=== PATIENT | male | born 1935 | race Caucasian/White ===

== ENCOUNTER 2019-10-09 06:01 | Inpatient (IN) | payer MEDICARE ==
[2019-10-09] MEDS ORDERED: CEFAZOLIN 2 GM in Premix Bag 1 BAG IVPB SCH (06:30)
[2019-10-09] MEDS ORDERED: Vancomycin 1.5 GRAM/300 ML BAG 1.5 GM in Premix Bag 1 BAG IVPB SCH (06:30)
[2019-10-09] MEDS ORDERED: Albumin 5% 0 ML ONE (06:39)
[2019-10-09] MEDS ORDERED: Midazolam HCl 5 mg/5 ml Vial ONE (06:48)
[2019-10-09] MEDS ORDERED: Vecuronium 10 MG VIAL ONE ×2 (06:48→10:15)
[2019-10-09] MEDS ORDERED: Fentanyl 250 MCG/5 ML VIAL ONE (06:48)
[2019-10-09] MEDS ORDERED: Dexmedetomidine 200 MCG/2 ML VIAL ONE (06:48)
[2019-10-09] MEDS ORDERED: Heparin 10,000 UNITS/1 ML VIAL 30,000 UNITS in Sodium Chloride 0.9% 1,000 ML FS SCH (07:00)
[2019-10-09] MEDS ORDERED: Midazolam HCl 2 mg/2 ml Vial ONE (07:13)
[2019-10-09] MEDS ORDERED: Dexamethasone 4 mg/ml Vial ONE (07:30)
[2019-10-09] MEDS ORDERED: EPINEPHrine 1 MG/ML AMP ONE (08:07)
[2019-10-09] MEDS ORDERED: EPINEPHrine 1 MG/10 ML Abboject SYRINGE ONE (08:07)
[2019-10-09] MEDS ORDERED: Albumin 5% 500 ML ONE (09:00)
[2019-10-09] MEDS ORDERED: PHENYLEPHRINE-NS 100 MCG/ML 10 ML SYRINGE ONE (09:17)
[2019-10-09] MEDS ORDERED: Bupivacaine/Epinephrine 0.5% 10 ML VIAL ONE (09:53)
[2019-10-09] MEDS ORDERED: Insulin Regular 300 UNITS/3 ML VIAL ONE (09:53)
[2019-10-09] MEDS ORDERED: Nitroglycerin 50 MG/250 ML BOT ONE (10:15)
[2019-10-09] MEDS ORDERED: Sodium Bicarb 50 MEQ/50 ML Abboject 8.4% SYRINGE ONE (10:15)
[2019-10-09] MEDS ORDERED: PROPOFOL 200 MG/20 ML VIAL ONE (10:15)
[2019-10-09] MEDS ORDERED: Papaverine 60 MG/2 ML VIAL ONE (10:15)
[2019-10-09] MEDS ORDERED: Thrombin 5000 UNITS/5 ML VIAL ONE (10:15)
[2019-10-09] MEDS ORDERED: Cardioplegic Soln 1,000 ML BAG ONE (10:15)
[2019-10-09] MEDS ORDERED: Norepinephrine 4 MG/4 ML VIAL ONE (10:15)
[2019-10-09] MEDS ORDERED: Potassium Chloride 60 MEQ/30 ML VIAL ONE (10:15)
[2019-10-09] MEDS ORDERED: Heparin 30,000 units/30 ml VIAL ONE (10:15)
[2019-10-09] MEDS ORDERED: Heparin 5,000 UNITS/ML VIAL ONE (10:15)
[2019-10-09] MEDS ORDERED: Aminocaproic Acid 5 GM/20 ML VIAL ONE (10:15)
[2019-10-09] MEDS ORDERED: Magnesium Sulfate 1 GM/2 ML VIAL ONE (10:15)
[2019-10-09] MEDS ORDERED: Ondansetron PF 4 MG/2 ML Vial ONE (10:15)
[2019-10-09] MEDS ORDERED: Calcium Chloride 1 GM/10 ML Abboject SYRINGE ONE (10:15)
[2019-10-09] MEDS ORDERED: Lidocaine 2% PF 100 mg/5 ml Syringe ONE (10:15)
[2019-10-09 12:24] LABS: Actual Bicarbonate (HCO3a) 20.9 mEq/L (22-28); Base Excess (BEa) -4.3 mEq/L (-2.0 to +3.0); CO2 Tension 38.7 mmHg (35.0-45.0); Calcium, Ionized 1.06 mmol/L (1.12-1.30); Carboxyhemoglobin (COHb) 0.2 gm% (0.0-3.0); Hemoglobin (Hb) 11.9 g/dL (14.0-18.0); O2 Tension (PaO2) 111.3 mmHg (> 60.0); pH, Arterial 7.35 (7.35-7.45)
[2019-10-09 12:25] LABS: Puncture Site ALINE
[2019-10-09 12:26] LABS: ALV-art Gradient 268.125 (0-20)
[2019-10-09] MEDS ORDERED: Midazolam HCl 2 mg/2 ml Vial SLOW IVP SCH (12:30)
[2019-10-09] MEDS ORDERED: Potassium Chloride 20 MEQ/100 ML PREMIX BAG IVPB PRN (12:34)
[2019-10-09] MEDS ORDERED: Phenylephrine 10 MG/NS 250 ML 250 ML IVPB PRN (12:34)
[2019-10-09] MEDS ORDERED: Bisacodyl 10 MG SUPP PR PRN (12:34)
[2019-10-09] MEDS ORDERED: Magnesium 2 GM/50 ML 2 GM in Premix Bag 1 BAG IVPB SCH (12:34)
[2019-10-09] MEDS ORDERED: Ondansetron PF 4 MG/2 ML Vial IVP PRN (12:34)
[2019-10-09] MEDS ORDERED: Post-Op Insulin Drip Protocol IVPB ONE (12:34)
[2019-10-09] MEDS ORDERED: Guaifenesin DM 100-10/5 ML UDCUP PO PRN (12:34)
[2019-10-09] MEDS ORDERED: Mag-Al 1200 mg/1200 mg/30 ML UDCUP PO PRN (12:34)
[2019-10-09] MEDS ORDERED: Morphine 2 MG/ML SYRINGE SLOW IVP PRN (12:34)
[2019-10-09] MEDS ORDERED: Fentanyl 100 MCG/2 ML VIAL SLOW IVP PRN (12:34)
[2019-10-09] MEDS ORDERED: D5 1/2 NS w/20 mEq KCL 1,000 ML IV SCH (12:34)
[2019-10-09] MEDS ORDERED: Hetastarch 6% 500 ML 500 ML IVPB PRN (12:34)
[2019-10-09] MEDS ORDERED: hydrALAZINE 20 MG/ML VIAL SLOW IVP PRN (12:34)
[2019-10-09] MEDS ORDERED: Bisacodyl 5 MG TAB PO PRN (12:34)
[2019-10-09] MEDS ORDERED: Norepinephrine 8 MG/0.9% NS 250 ML IVPB PRN (12:34)
[2019-10-09] MEDS ORDERED: Nitroglycerin 50 MG/250 ML BOT 250 ML IVPB PRN (12:34)
[2019-10-09] MEDS ORDERED: Morphine 4 MG/ML VIAL ONE (12:35)
[2019-10-09] MEDS ORDERED: Propofol 1,000 MG/100 ML VIAL IV ONE (12:37)
[2019-10-09 12:43] LABS: Hemoglobin 11.4 g/dL (14.0-18.0); Mean Corpuscular HGB CONC 32.8 g/dL (32.0-36.0); Mean Corpuscular Hemoglobin 31.1 pg (27.0-31.0); Mean Corpuscular Volume 94.9 fL (78.0-98.0); Mean Platelet Volume 6.9 fL (7.4-10.4); Platelet Count 151 thou/uL (130-400); RBC Distribution Width 11.6 % (11.5-14.5); Red Blood Cell (RBC) Count 3.68 mill/uL (4.70-6.10); White Blood Cell (WBC) Count 17.1 thou/uL (4.8-10.8)
[2019-10-09 12:44] LABS: INR-International Normal Ratio 1.7; PTT 66.3 SEC (22.9-36.1); Prothrombin Time 20.2 SEC (12.0-14.7)
[2019-10-09] MEDS ORDERED: Dextrose 50% Abboject 50 ML SYRINGE SLOW IVP PRN (12:47)
[2019-10-09] MEDS ORDERED: HUMULIN R 100 UNITS in Sodium Chloride 0.9% 100 ML IVPB SCH (12:47)
[2019-10-09] MEDS ORDERED: Dextrose 5% in Water 1,000 ML IV PRN (12:47)
--- NOTE | 2019-10-09 12:58 | RAD ---
XR Chest 1 View Portable History: Open-heart surgery Comparison: Radiograph prior day Findings: Patient is intubated with endotracheal tube tip at the level of clavicles. Aortic valve rep lacement. Heart size is enlarged. Mild widening of the mediastinum. Mediastinal drains are present. No pneumothorax. Impression: Expected postoperative findings without complication.
[2019-10-09 13:03] LABS: Anion Gap 14 mmol/L (10-20); BUN (Urea Nitrogen) 13 mg/dL (8.4-25.7); Calc. Creatinine Clearance 64 mL/min (70-130); Calcium 6.9 mg/dL (7.8-10.44); Carbon Dioxide 17 mmol/L (23-31); Chloride 114 mmol/L (98-107); Estimated GFR-MDRD 73; Glucose 60 mg/dL (83-110); Potassium 3.9 mmol/L (3.5-5.1); Sodium 141 mmol/L (136-145)
[2019-10-09 13:27] LABS: Band 32 % (5-11); Eosinophils 1 % (0-10); Lymphocytes 7 % (21-51); MDiff Complete? YES; Metamyelocyte 2 % (0-0); Monocytes 1 % (0-10); Neutrophil 56 % (42-75); Platelet Morphology Comment Appears Adequate
--- NOTE | 2019-10-09 13:53 | OP ---
DATE OF PROCEDURE: 10/09/2019 PREOPERATIVE DIAGNOSES: Aortic stenosis/coronary artery disease. POSTOPERATIVE DIAGNOSES: Aortic stenosis/coronary artery disease. PROCEDURES PERFORMED: 1. Aortic valve replacement with #23 Inspiris bioprosthetic valve. 2. Coronary artery bypass grafting x2;. a. Left internal mammary to 1.25 mm left anterior descending. b. Right radial artery to 2.0 mm obtuse marginal. 3. Right radial artery harvest. ANESTHESIA: General endotracheal. ANESTHESIA: Maury Russ MD. PUMP TIME: 99 minutes. CROSS-CLAMP TIME: 83 minutes. LOW CORE TEMPERATURE: 34 degrees Celsius. DRUM TENDER: Zaid Sarmiento. DRAINS: 24-Belizean chest tubes x2. DRIPS: Levophed at 8 mcg. TRANSFUSIONS: None. DESCRIPTION OF PROCEDURE: After consent was obtained, the patient was brought to the operating room and placed in supine position on the operating room table. Appropriate central line and monitors were placed and general endotracheal anesthesia was induced. Upon induction of anesthesia, the patient arrested. His perfusion did not return with the usual cardiac drugs. The patient then was rapidly prepped and draped during CPR. CPR was continued as we opened his sternum and heparinized. Once the sternum was opened and spread, the pericardium was opened. Open cardiac massage was performed until we had return of spontaneous rhythm and good perfusion numbers. At this point, we were fully heparinized. The patient had had previous vein ablations bilaterally in his legs, so taking saphenous vein was not an option. We went ahead and harvested his right radial artery in the usual fashion and closed the skin with clips. Bulky dressing was then applied. Left internal mammary artery was harvested as a pedicle graft. The pedicle was divided distally. Aortic and atrial cannulation was then performed. After adequate ACT numbers have been obtained, the patient was placed on cardiopulmonary bypass. Distal targets were marked. Aortic cross-clamp was applied and an antegrade sanguineous cardioplegic arrest was obtained. 1 L of antegrade cold [place] cardioplegia was given. Topical cold solution was used. The radial artery was anastomosed to the OM in an end-to-side fashion with running 7-0 Prolene suture. Anastomosis was tested and was hemostatic. Pedicles were secured with interrupted 6-0 Prolene suture. The pedicle veins were clipped. Mammary artery was brought through a window in the pericardium and anastomosed to the LAD in an end-to-side fashion with running 7-0 Prolene suture. Anastomosis was tested and was hemostatic. Mammary was re-clamped. Pedicle was secured with 6-0 Prolene suture. 300 mL of antegrade cardioplegia was given. A left ventricular sump drain was placed through the right superior pulmonary vein. After completion of cardioplegia, a transverse hockey-stick aortotomy was performed. The valve was inspected. There was a 3 leaflet valve that was heavily calcified. There were also multiple perforations in the valve. The leaflets were debrided and the anulus decalcified and it was measured at #23. This valve was opened and brought onto the operative field. Pledgeted 2-0 Ethibond sutures were placed circumferentially in the anulus and subsequently passed through the sewing ring of the valve. The valve seated and was secured with Cor-Knots. The valve was seated nicely. The aortotomy was closed in a dual-layer running fashion with pledgeted 4-0 prolene suture. Bioglue was then used. Deairing maneuvers were performed. A punch site was created in the aorta for proximal anastomosis. The radial artery was anastomosed at the punch site with running 6-0 Prolene suture. The anastomotic suture was tied. The root vent was replaced in the aortic root. The heart was filled and again deairing maneuver was performed. After adequate deairing had been performed, the patient was placed in Trendelenburg position and the cross-clamp removed. Ventricular pacing wires were placed. The patient was warmed and weaned from cardiopulmonary bypass. After good hemodynamics had been obtained, bypass was discontinued. Protamine was administered. Decannulation was performed. A pursestring suture was secured. The root vent was removed and its pursestring suture secured. The left ventricular sump drain was removed and its pursestring suture was secured. After adequate hemostasis had been obtained, vancomycin paste was placed on the sternal edges. Two 24-Belizean chest tubes were then placed in the mediastinum. The hemostasis was again ensured and the sternum was closed with #7 wire. Sternum was treated by platelet-rich plasma. Wire was twisted and buried. Wounds were irrigated and treated with platelet-poor plasma. The presternal block with 0.5% Marcaine mixed with Decadron was performed. Wounds were then closed in multiple layers and Dermabond applied to the skin. The patient tolerated the procedure well and was transferred to the intensive care unit in stable, but critical condition. Job ID: [id number]
[2019-10-09] MEDS: CEFAZOLIN 2 GM in Premix Bag 1 BAG IVPB SCH ×2 (14:03→22:42)
[2019-10-09 14:22] VITALS: BMI 27.7
[2019-10-09 15:43] LABS: Actual Bicarbonate (HCO3a) 18.4 mEq/L (22-28); Base Excess (BEa) -6.6 mEq/L (-2.0 to +3.0); CO2 Tension 35.1 mmHg (35.0-45.0); Calcium, Ionized 1.08 mmol/L (1.12-1.30); Carboxyhemoglobin (COHb) 0.5 gm% (0.0-3.0); Hemoglobin (Hb) 12.2 g/dL (14.0-18.0); O2 Tension (PaO2) 108.9 mmHg (> 60.0); Potassium - ABG Lab 4.38 mmol/L (3.70-5.30); pH, Arterial 7.34 (7.35-7.45)
[2019-10-09 15:45] LABS: ALV-art Gradient 61.125 (0-20); Puncture Site ALINE
--- NOTE | 2019-10-09 16:54 | PDOC.CPN ---
- Subjective Date: 10/09/19 Time: 16:50 - Review of Systems ROS unobtainable: due to mental status (Pt. still sleepy s/p CABG + AVR) - Objective Allergies/Adverse Reactions: Allergies Allergy/AdvReac Type Severity Reaction Status Date / Time gluten Allergy Verified 10/08/19 12:01 Visit Medications: Current Medications Acetaminophen (Tylenol) 650 mg PO Q6H PRN PRN Reason: Headache/Fever/Mild Pain (1-3) Al Hydroxide/Mg Hydroxide (Maalox) 30 ml PO Q4H PRN PRN Reason: Indigestion Albumin Human (Albumin 5%) 12.5 gm IVPB Q6H PRN PRN Reason: To Maintain SBP> 90 mmHG Stop: 10/10/19 12:35 Albumin Human (Albumin 5%) 25 gm IVPB Q6H PRN PRN Reason: To Maintain SBP > 90 mmHG Stop: 10/10/19 12:35 Albuterol/Ipratropium (Duoneb) 3 ml NEB Q6H PRN PRN Reason: SHORTNESS OF BREATH Aspirin (Aspirin) 325 mg PO DAILY [facility] Bisacodyl (Dulcolax) 10 mg PO Q12H PRN PRN Reason: Constipation Bisacodyl (Dulcolax) 10 mg WV Q12H PRN PRN Reason: Constipation Dextrose/Water (Dextrose 50%) 25 gm SLOW IVP PRN PRN PRN Reason: PER HYPOGLYCEMIC PROTOCOL Famotidine (Pepcid) 20 mg SLOW IVP Q12HR [facility] Fentanyl (Sublimaze) 25 mcg SLOW IVP Q2H PRN PRN Reason: Moderate Pain (4-6) Stop: 10/11/19 12:12 Fentanyl (Sublimaze) 50 mcg SLOW IVP Q2H PRN PRN Reason: Severe Pain (7-10) Stop: 10/11/19 12:12 Glucagon (Glucagon) 1 mg SC PRN PRN PRN Reason: PER HYPOGLYCEMIC PROTOCOL Guaifenesin/Dextromethorphan (Robitussin Dm) 15 ml PO Q4H PRN PRN Reason: Cough Hydralazine HCl (Apresoline) 10 mg SLOW IVP Q6H PRN PRN Reason: To Maintain SBP< 140mmHG Cefazolin Sodium/Dextrose 2 gm (/ Device) 50 mls @ 100 mls/hr IVPB 0600,1400, 2200 [facility] Stop: 10/10/19 06:29 Last Admin: 10/09/19 14:03 Dose: 50 mls Potassium Chloride/Dextrose/Sod Cl (D5 1/2 Ns W/20 Meq Kcl) 1,000 mls @ 40 mls/ hr IV .Q24H [facility] Last Admin: 10/09/19 12:59 Dose: 1,000 mls Hetastarch/Sodium Chloride (Hespan) 500 mls @ 0 mls/hr IVPB PRN PRN PRN Reason: To Maintain SBP > 90mmHg Stop: 10/10/19 12:12 Norepinephrine Bitartrate (Levophed) 250 mls @ 0 mls/hr IVPB PRN PRN; Protocol PRN Reason: To maintain SBP > 90 mmHG Magnesium Sulfate 2 gm/ Device 50 mls @ 50 mls/hr IVPB QAM [facility] Stop: 10/11/19 09:59 Nitroglycerin/Dextrose (Nitroglycerin 50 Mg/250 Ml Bot) 250 mls @ 0 mls/hr IVPB PRN PRN; Protocol PRN Reason: To Maintain SBP< 140mmHG Phenylephrine HCl (Mario-Synephrine) 250 mls @ 0 mls/hr IVPB PRN PRN; Protocol PRN Reason: To maintain SBP > 90 mmHG Vancomycin HCl 1.5 gm/ Device 300 mls @ 200 mls/hr IVPB 0800,2000 [facility] Stop: 10/10/19 09:29 Insulin Human Regular 100 (units/ Sodium Chloride) 101 mls @ 0 mls/hr IVPB INF [facility]; Protocol Dextrose/Water (D5w) 1,000 mls @ 0 mls/hr IV INF PRN PRN Reason: PRN HYPOGLYCEMIC PROTOCOL Insulin Human Regular (Humulin R) 0 units SC Q4H PRN; Protocol PRN Reason: POST OP SLIDING SCALE Ketorolac Tromethamine (Toradol) 30 mg IVP Q6HR [facility] Stop: 10/12/19 18:01 Morphine Sulfate (Morphine) 2 mg SLOW IVP Q15MIN PRN PRN Reason: Severe Pain (7-10) Ondansetron HCl (Zofran) 4 mg IVP Q6H PRN PRN Reason: Nausea/Vomiting Last Admin: 10/09/19 13:12 Dose: 4 mg Potassium Chloride (Kcl) 20 meq IVPB PRN PRN PRN Reason: K level </= 4.0 Last Admin: 10/09/19 14:04 Dose: 20 meq Sodium Chloride (Flush - Normal Saline) 10 ml IVF PRN PRN PRN Reason: Saline Flush Tramadol HCl (Ultram) 50 mg PO Q6H PRN PRN Reason: Pain Vital Signs & Weight: Vital Signs Temp Pulse Resp BP Pulse Ox 10/09/19 16:03 84 20 98 10/09/19 15:37 82 117/53 L 10/09/19 15:08 78 10/09/19 12:45 100 10/09/19 12:19 97.4 F L 10/09/19 12:15 97.4 F L 84 12 100 Weight 193 lb 5.526 oz - Quality Measures CV meds: Beta Judah: No (start when taking po), NAKIA/ARB: No ("), Statin: No ( "), ASA: No (") - Physical Exam General: other (sleepy due to earlier surgery and anesthesia and pain meds.) Neck: no lymphadenopathy Cardiac: regular rate and rhythm Lungs: clear to auscultation, no wheeze, rales, rhonchi (chest tubes in place.) Neuro: grossly intact Abdomen: unremarkable Extremities: no cyanosis, no edema - Labs Result Diagrams: 10/09/19 12:21 10/09/19 12:21 - Telemetry Sinus rhythms and dysrhythmias: sinus rhythm - Assessment/Plan Assessment/Plan: 1. s/p AVR + CABG: MUKHERJEE-> LAD, Radial -> OM. # 23 bioprosthetic AV. 2. HTN. stable. Resume po meds when taking po. 3. Dyslipidemia. Resume statins. 4. Carotid artery disease. Follow. Stable post-op.
[2019-10-09] MEDS: Ketorolac Tromethamine 30 MG/ML VIAL IVP SCH (17:16)
[2019-10-09 18:14] LABS: Hemoglobin 11.9 g/dL (14.0-18.0)
[2019-10-09] MEDS: Insulin Regular 300 UNITS/3 ML VIAL SC PRN ×2 (18:18→20:53)
[2019-10-09 18:36] LABS: Potassium 5.6 mmol/L (3.5-5.1)
[2019-10-09] MEDS: Vancomycin 1.5 GRAM/300 ML BAG 1.5 GM in Premix Bag 1 BAG IVPB SCH (20:51)
[2019-10-09] MEDS ORDERED: Famotidine/PF 20 mg/2ml Vial SLOW IVP SCH (21:00)
[2019-10-09] MEDS: Fentanyl 100 MCG/2 ML VIAL SLOW IVP PRN (22:42)
[2019-10-10] MEDS: Ketorolac Tromethamine 30 MG/ML VIAL IVP SCH ×5 (00:20→23:09)
[2019-10-10] MEDS: Insulin Regular 300 UNITS/3 ML VIAL SC PRN ×2 (00:24→04:21)
[2019-10-10] MEDS: traMADol HCl 50 MG TAB PO PRN ×3 (02:57→21:09)
[2019-10-10 03:28] LABS: #Lymphocytes 0.6 thou/uL (1.20-3.40); #Neutrophils 11.9 thou/uL (1.40-6.50); %Basophils 0.1 % (0.0-1.0); %Eosinophils 0.1 % (0.0-10.0); %Lymphocytes 4.5 % (21.0-51.0); %Neutrophils 88.3 % (42.0-75.0); Hemoglobin 9.3 g/dL (14.0-18.0); Mean Corpuscular HGB CONC 34.1 g/dL (32.0-36.0); Mean Corpuscular Hemoglobin 32.3 pg (27.0-31.0); Mean Corpuscular Volume 94.5 fL (78.0-98.0); Mean Platelet Volume 7.1 fL (7.4-10.4); Platelet Count 121 thou/uL (130-400); RBC Distribution Width 11.8 % (11.5-14.5); Red Blood Cell (RBC) Count 2.88 mill/uL (4.70-6.10); White Blood Cell (WBC) Count 13.5 thou/uL (4.8-10.8)
[2019-10-10 03:45] LABS: Anion Gap 11 mmol/L (10-20); BUN (Urea Nitrogen) 18 mg/dL (8.4-25.7); Calc. Creatinine Clearance 61 mL/min (70-130); Calcium 7.5 mg/dL (7.8-10.44); Carbon Dioxide 19 mmol/L (23-31); Chloride 111 mmol/L (98-107); Estimated GFR-MDRD 60; Glucose 149 mg/dL (83-110); Potassium 5.3 mmol/L (3.5-5.1); Sodium 136 mmol/L (136-145)
[2019-10-10] MEDS: CEFAZOLIN 2 GM in Premix Bag 1 BAG IVPB SCH (05:14)
--- NOTE | 2019-10-10 08:39 | RAD ---
PORTABLE CHEST 1 VIEW: DATE: 10/10/2019. TIME: 4:49 a.m. HISTORY: Post open heart surgery. FINDINGS/IMPRESSION: Comparison is made with the exam of the previous day. Interval removal of the endotracheal tube is seen. The remainder of the exam is otherwise stable. POS: SE[facility]
[2019-10-10] MEDS: Magnesium 2 GM/50 ML 2 GM in Premix Bag 1 BAG IVPB SCH (09:19)
[2019-10-10] MEDS: Vancomycin 1.5 GRAM/300 ML BAG 1.5 GM in Premix Bag 1 BAG IVPB SCH (09:19)
[2019-10-10] MEDS: Aspirin 325 MG TAB PO SCH (09:20)
--- NOTE | 2019-10-10 11:52 | PDOC.CPN ---
- Subjective Date: 10/10/19 Time: 08:30 Interval history: The pt seen and examined. No overnight events. No cardiac complaints. He is up to chair having breakfast. - Objective Allergies/Adverse Reactions: Allergies Allergy/AdvReac Type Severity Reaction Status Date / Time gluten Allergy Verified 10/08/19 12:01 Visit Medications: Current Medications Acetaminophen (Tylenol) 650 mg PO Q6H PRN PRN Reason: Headache/Fever/Mild Pain (1-3) Al Hydroxide/Mg Hydroxide (Maalox) 30 ml PO Q4H PRN PRN Reason: Indigestion Albumin Human (Albumin 5%) 12.5 gm IVPB Q6H PRN PRN Reason: To Maintain SBP> 90 mmHG Stop: 10/10/19 12:35 Albumin Human (Albumin 5%) 25 gm IVPB Q6H PRN PRN Reason: To Maintain SBP > 90 mmHG Stop: 10/10/19 12:35 Last Admin: 10/09/19 20:55 Dose: 25 gm Albuterol/Ipratropium (Duoneb) 3 ml NEB Q6H PRN PRN Reason: SHORTNESS OF BREATH Aspirin (Aspirin) 325 mg PO DAILY [facility] Last Admin: 10/10/19 09:20 Dose: 325 mg Bisacodyl (Dulcolax) 10 mg PO Q12H PRN PRN Reason: Constipation Bisacodyl (Dulcolax) 10 mg MD Q12H PRN PRN Reason: Constipation Fentanyl (Sublimaze) 25 mcg SLOW IVP Q2H PRN PRN Reason: Moderate Pain (4-6) Stop: 10/11/19 12:12 Last Admin: 10/09/19 22:42 Dose: 25 mcg Fentanyl (Sublimaze) 50 mcg SLOW IVP Q2H PRN PRN Reason: Severe Pain (7-10) Stop: 10/11/19 12:12 Guaifenesin/Dextromethorphan (Robitussin Dm) 15 ml PO Q4H PRN PRN Reason: Cough Hydralazine HCl (Apresoline) 10 mg SLOW IVP Q6H PRN PRN Reason: To Maintain SBP< 140mmHG Hetastarch/Sodium Chloride (Hespan) 500 mls @ 0 mls/hr IVPB PRN PRN PRN Reason: To Maintain SBP > 90mmHg Stop: 10/10/19 12:12 Norepinephrine Bitartrate (Levophed) 250 mls @ 0 mls/hr IVPB PRN PRN; Protocol PRN Reason: To maintain SBP > 90 mmHG Magnesium Sulfate 2 gm/ Device 50 mls @ 50 mls/hr IVPB QAM [facility] Stop: 10/11/19 09:59 Last Admin: 10/10/19 09:19 Dose: 50 mls Ketorolac Tromethamine (Toradol) 30 mg IVP Q6HR [facility] Stop: 10/12/19 18:01 Last Admin: 10/10/19 05:13 Dose: 30 mg Ondansetron HCl (Zofran) 4 mg IVP Q6H PRN PRN Reason: Nausea/Vomiting Last Admin: 10/09/19 13:12 Dose: 4 mg Pantoprazole Sodium (Protonix) 40 mg PO DAILY [facility] Last Admin: 10/10/19 09:20 Dose: 40 mg Potassium Chloride (Kcl) 20 meq IVPB PRN PRN PRN Reason: K level </= 4.0 Last Admin: 10/09/19 14:04 Dose: 20 meq Sodium Chloride (Flush - Normal Saline) 10 ml IVF PRN PRN PRN Reason: Saline Flush Tramadol HCl (Ultram) 50 mg PO Q6H PRN PRN Reason: Pain Last Admin: 10/10/19 09:22 Dose: 50 mg Vital Signs & Weight: Vital Signs Temp Pulse Ox 10/10/19 08:00 97.6 F 99 10/10/19 04:00 98.8 F 10/10/19 00:00 98.2 F Weight 188 lb 0.869 oz - Quality Measures CV meds: Beta Judah: No (start when taking po), NAKIA/ARB: No ("), Statin: No ( "), ASA: No (") - Physical Exam General: alert & oriented x3 HEENT: mucus membranes moist Neck: supple neck Cardiac: regular rate and rhythm, S1/S2 Lungs: clear to auscultation, decreased breath sounds Neuro: cranial nerve 2-12 intact - Labs Result Diagrams: 10/11/19 03:10 10/11/19 03:10 - Telemetry Sinus rhythms and dysrhythmias: sinus rhythm - Assessment/Plan Assessment/Plan: 1. s/p # 23 Bioprosthetic AVR + CABG: MUKHERJEE-> LAD, Radial -> OM on 10/09/2019 - stable; on ASA and statin; will start BBlocker or NAKIA/ARB with stable VS 2. HTN - slightly hypotensive without any BP med. 3. Dyslipidemia - will change his statin from Zocor to Lipitor 20mg qd 2/2 s/p CABG 4. Carotid artery disease. Follow. MAR reviewed Pt. seen and eval. by me. I agree with the A/P by the WEB DATABASE DEVELOPER. Chest tubes still in. Chest clear anteriorly. RRR. No edema. Continue present meds.
[2019-10-10] MEDS: Atorvastatin Calcium 20 MG TAB PO SCH (20:33)
[2019-10-10] MEDS: Fentanyl 100 MCG/2 ML VIAL SLOW IVP PRN (21:38)
[2019-10-11 03:37] LABS: #Eosinphils 0.2 thou/uL (0.0-0.7); #Monocytes 0.8 thou/uL (0.11-0.59); #Neutrophils 8.8 thou/uL (1.40-6.50); %Basophils 0.3 % (0.0-1.0); %Eosinophils 1.8 % (0.0-10.0); %Lymphocytes 9.5 % (21.0-51.0); %Monocytes 7.7 % (0.0-10.0); %Neutrophils 80.7 % (42.0-75.0); Hemoglobin 8.4 g/dL (14.0-18.0); Mean Corpuscular HGB CONC 33.1 g/dL (32.0-36.0); Mean Corpuscular Hemoglobin 31.7 pg (27.0-31.0); Mean Corpuscular Volume 95.8 fL (78.0-98.0); Mean Platelet Volume 7.6 fL (7.4-10.4); Platelet Count 105 thou/uL (130-400); RBC Distribution Width 11.9 % (11.5-14.5); Red Blood Cell (RBC) Count 2.66 mill/uL (4.70-6.10); White Blood Cell (WBC) Count 10.9 thou/uL (4.8-10.8)
[2019-10-11 03:56] LABS: Anion Gap 8 mmol/L (10-20); BUN (Urea Nitrogen) 28 mg/dL (8.4-25.7); Calc. Creatinine Clearance 57 mL/min (70-130); Calcium 7.8 mg/dL (7.8-10.44); Carbon Dioxide 25 mmol/L (23-31); Chloride 107 mmol/L (98-107); Estimated GFR-MDRD 56; Glucose 129 mg/dL (83-110); Sodium 135 mmol/L (136-145)
[2019-10-11] MEDS: Ketorolac Tromethamine 30 MG/ML VIAL IVP SCH ×4 (05:11→23:59)
[2019-10-11] MEDS ORDERED: Furosemide 40 MG/4 ML VIAL SLOW IVP SCH (07:15)
--- NOTE | 2019-10-11 08:04 | RAD ---
Portable frontal chest radiograph: 10/11/2019 COMPARISON: 10/10/2019 HISTORY: Evaluate chest following open heart surgery FINDINGS: Stable midline sternotomy wires and evidence of mechanical valve replacement. Drainage cath eter overlies the mid left hemithorax and mediastinum. No pneumothorax, lobar consolidation, or alveolar edema. Mild interval improvement in medial left basilar aeration. IMPRESSION: Portable chest radiograph as detailed above.
--- NOTE | 2019-10-11 08:32 | PDOC.CPN ---
- Subjective Date: 10/11/19 Time: 08:32 Interval history: The pt seen and examined. No overnight events. No cardiac complaints. He is up to chair without any cardiac complaints. - Objective Allergies/Adverse Reactions: Allergies Allergy/AdvReac Type Severity Reaction Status Date / Time gluten Allergy Verified 10/08/19 12:01 Visit Medications: Current Medications Acetaminophen (Tylenol) 650 mg PO Q6H PRN PRN Reason: Headache/Fever/Mild Pain (1-3) Al Hydroxide/Mg Hydroxide (Maalox) 30 ml PO Q4H PRN PRN Reason: Indigestion Albuterol/Ipratropium (Duoneb) 3 ml NEB Q6H PRN PRN Reason: SHORTNESS OF BREATH Aspirin (Aspirin) 325 mg PO DAILY [facility] Last Admin: 10/10/19 09:20 Dose: 325 mg Atorvastatin Calcium (Lipitor) 20 mg PO HS [facility] Last Admin: 10/10/19 20:33 Dose: 20 mg Bisacodyl (Dulcolax) 10 mg PO Q12H PRN PRN Reason: Constipation Bisacodyl (Dulcolax) 10 mg MS Q12H PRN PRN Reason: Constipation Fentanyl (Sublimaze) 25 mcg SLOW IVP Q2H PRN PRN Reason: Moderate Pain (4-6) Stop: 10/11/19 12:12 Last Admin: 10/10/19 21:38 Dose: 25 mcg Fentanyl (Sublimaze) 50 mcg SLOW IVP Q2H PRN PRN Reason: Severe Pain (7-10) Stop: 10/11/19 12:12 Furosemide (Lasix) 40 mg SLOW IVP NOW [facility] Stop: 10/11/19 09:15 Last Admin: 10/11/19 07:45 Dose: 40 mg Guaifenesin/Dextromethorphan (Robitussin Dm) 15 ml PO Q4H PRN PRN Reason: Cough Magnesium Sulfate 2 gm/ Device 50 mls @ 50 mls/hr IVPB QAM [facility] Stop: 10/11/19 09:59 Last Admin: 10/10/19 09:19 Dose: 50 mls Ketorolac Tromethamine (Toradol) 30 mg IVP Q6HR [facility] Stop: 10/12/19 18:01 Last Admin: 10/11/19 05:11 Dose: 30 mg Ondansetron HCl (Zofran) 4 mg IVP Q6H PRN PRN Reason: Nausea/Vomiting Last Admin: 10/09/19 13:12 Dose: 4 mg Pantoprazole Sodium (Protonix) 40 mg PO DAILY [facility] Last Admin: 10/10/19 09:20 Dose: 40 mg Potassium Chloride (Kcl) 20 meq IVPB PRN PRN PRN Reason: K level </= 4.0 Last Admin: 10/09/19 14:04 Dose: 20 meq Sodium Chloride (Flush - Normal Saline) 10 ml IVF PRN PRN PRN Reason: Saline Flush Tramadol HCl (Ultram) 50 mg PO Q6H PRN PRN Reason: Pain Last Admin: 10/10/19 21:09 Dose: 50 mg Vital Signs & Weight: Vital Signs Temp 10/11/19 07:00 97.8 F 10/11/19 04:00 97.9 F 10/11/19 00:00 98.3 F Weight 176 lb 2.389 oz - Quality Measures CV meds: Beta Judah: No (start when taking po), NAKIA/ARB: No ("), Statin: No ( "), ASA: No (") - Physical Exam General: alert & oriented x3 Neck: supple neck Cardiac: regular rate and rhythm, S1/S2 Lungs: clear to auscultation, decreased breath sounds Neuro: cranial nerve 2-12 intact Abdomen: unremarkable Skin: clear - Labs Result Diagrams: 10/11/19 03:10 10/11/19 03:10 - Telemetry Sinus rhythms and dysrhythmias: sinus rhythm - Assessment/Plan Assessment/Plan: 1. s/p # 23 Bioprosthetic AVR + CABG: MUKHERJEE-> LAD, Radial -> OM on 10/09/2019 - stable; on ASA and statin; will start BBlocker or NAKIA/ARB with stable VS 2. HTN - slightly hypotensive without any BP med. 3. Dyslipidemia - will change his statin from Zocor to Lipitor 20mg qd 2/2 s/p CABG 4. Carotid artery disease. Follow. MAR reviewed Pt. seen and eval. by me. I agree with the A/P by the LABEL FUSER TENDER. He is out of CCU, doing well from a cardiac standpoint. Cheast clear. RRR. gjmays
[2019-10-11] MEDS: Acetaminophen 325 MG TAB PO PRN (08:47)
[2019-10-11] MEDS: Aspirin 325 MG TAB PO SCH (08:47)
[2019-10-11] MEDS: Magnesium 2 GM/50 ML 2 GM in Premix Bag 1 BAG IVPB SCH (08:51)
[2019-10-11] MEDS ORDERED: Zolpidem Tartrate 5 MG TAB PO PRN (11:04)
[2019-10-11] MEDS ORDERED: Bisacodyl 5 MG TAB PO PRN (11:04)
[2019-10-11] MEDS ORDERED: diphenhydrAMINE 25 MG CAP PO PRN (11:04)
[2019-10-11] MEDS ORDERED: Nitroglycerin 0.4 MG TAB (25 Tab Bottle) SL PRN (11:04)
[2019-10-11] MEDS ORDERED: Mag-Al 1200 mg/1200 mg/30 ML UDCUP PO PRN (11:04)
[2019-10-11] MEDS ORDERED: Mineral Oil ENEMA PR PRN (11:04)
[2019-10-11] MEDS ORDERED: Bisacodyl 10 MG SUPP PR PRN (11:04)
[2019-10-11] MEDS ORDERED: Guaifenesin DM 100-10/5 ML UDCUP PO PRN (11:04)
[2019-10-11] MEDS ORDERED: Artificial Tears 18 DROP/0.9 ML EA EYE PRN (11:04)
[2019-10-11] MEDS ORDERED: Digoxin 0.5 MG/2 ML AMP SLOW IVP SCH (17:00)
[2019-10-11] MEDS: Atorvastatin Calcium 20 MG TAB PO SCH (21:17)
[2019-10-12] MEDS: traMADol HCl 50 MG TAB PO PRN (04:13)
[2019-10-12] MEDS: Ketorolac Tromethamine 30 MG/ML VIAL IVP SCH ×3 (06:26→17:54)
[2019-10-12] MEDS: Aspirin 325 mg Enteric Coated Tablet PO SCH (08:50)
[2019-10-12] MEDS: Potassium Chloride 10 MEQ TAB PO SCH ×2 (08:51→17:55)
[2019-10-12] MEDS: Furosemide 40 MG TAB PO SCH ×2 (08:51→12:57)
--- NOTE | 2019-10-12 12:11 | PDOC.CPN ---
- Subjective Date: 10/12/19 Time: 08:30 Interval history: The pt seen and examined. No overnight events. No cardiac complaints. - Objective Allergies/Adverse Reactions: Allergies Allergy/AdvReac Type Severity Reaction Status Date / Time gluten Allergy Verified 10/08/19 12:01 Visit Medications: Current Medications Acetaminophen (Tylenol) 650 mg PO Q6H PRN PRN Reason: Headache/Fever/Mild Pain (1-3) Last Admin: 10/11/19 08:47 Dose: 650 mg Al Hydroxide/Mg Hydroxide (Maalox) 30 ml PO Q4H PRN PRN Reason: Indigestion Albuterol/Ipratropium (Duoneb) 3 ml NEB Q6H PRN PRN Reason: SHORTNESS OF BREATH Artificial Tears (Tears Naturale) 0 drop EA EYE PRN PRN PRN Reason: Dry Eyes Aspirin (Ecotrin) 325 mg PO DAILY [facility] Last Admin: 10/12/19 08:50 Dose: 325 mg Atorvastatin Calcium (Lipitor) 20 mg PO HS [facility] Last Admin: 10/11/19 21:17 Dose: 20 mg Bisacodyl (Dulcolax) 10 mg PO Q12H PRN PRN Reason: Constipation Bisacodyl (Dulcolax) 10 mg ID Q12H PRN PRN Reason: Constipation Diphenhydramine HCl (Benadryl) 25 mg PO Q6H PRN PRN Reason: Itching & Insomnia or Antoine Amarjit Furosemide (Lasix) 40 mg PO 0900,1400 [facility] Last Admin: 10/12/19 08:51 Dose: 40 mg Guaifenesin/Dextromethorphan (Robitussin Dm) 15 ml PO Q4H PRN PRN Reason: Cough Ketorolac Tromethamine (Toradol) 30 mg IVP Q6HR [facility] Stop: 10/12/19 18:01 Last Admin: 10/12/19 06:26 Dose: 30 mg Mineral Oil (Fleet Mineral Oil) 133 ml ID DAILYPRN PRN PRN Reason: Constipation Nitroglycerin (Nitrostat) 0.4 mg SL Q5MIN PRN PRN Reason: Chest Pain Ondansetron HCl (Zofran) 4 mg IVP Q6H PRN PRN Reason: Nausea/Vomiting Last Admin: 10/09/19 13:12 Dose: 4 mg Pantoprazole Sodium (Protonix) 40 mg PO DAILY [facility] Last Admin: 10/12/19 08:51 Dose: 40 mg Potassium Chloride (Kcl) 20 meq IVPB PRN PRN PRN Reason: K level </= 4.0 Last Admin: 10/09/19 14:04 Dose: 20 meq Potassium Chloride (Klor-Con 10) 10 meq PO BID-WM [facility] Last Admin: 10/12/19 08:51 Dose: 10 meq Sodium Chloride (Flush - Normal Saline) 10 ml IVF PRN PRN PRN Reason: Saline Flush Last Admin: 10/12/19 06:28 Dose: 10 ml Tramadol HCl (Ultram) 50 mg PO Q6H PRN PRN Reason: Pain Last Admin: 10/12/19 04:13 Dose: 50 mg Zolpidem Tartrate (Ambien) 5 mg PO HSPRN PRN PRN Reason: Insomnia Vital Signs & Weight: Vital Signs Temp Pulse Resp BP Pulse Ox 10/12/19 08:00 97.6 F 77 15 100/45 L 94 L 10/12/19 03:58 97.6 F 74 19 102/48 L 94 L Weight 187 lb 14.4 oz - Quality Measures CV meds: Beta Judah: No (start when taking po), NAKIA/ARB: No ("), Statin: No ( "), ASA: No (") - Physical Exam General: alert & oriented x3 HEENT: mucus membranes moist Neck: supple neck Cardiac: regular rate and rhythm, S1/S2 Lungs: clear to auscultation, decreased breath sounds Neuro: cranial nerve 2-12 intact Abdomen: unremarkable Skin: clear Musculoskeletal: decreased range of motion - Labs Result Diagrams: 10/11/19 03:10 10/11/19 03:10 - Telemetry Sinus rhythms and dysrhythmias: sinus rhythm - Assessment/Plan Assessment/Plan: 1. s/p # 23 Bioprosthetic AVR + CABG: MUKHERJEE-> LAD, Radial -> OM on 10/09/2019 - stable; on ASA and statin; will start BBlocker or NAKIA/ARB with stable VS 2. HTN - slightly hypotensive without any BP med. 3. Dyslipidemia - will change his statin from Zocor to Lipitor 20mg qd 2/2 s/p CABG 4. Carotid artery disease. Follow. MAR reviewed Pt. seen and eval. by me. I agree with the A/P by the P. He denies cardiac c/o. Doing well s/p AVR+CABG. Ambulating in halls with therapy.
[2019-10-12] MEDS ORDERED: Amiodarone 450 MG in Dextrose 5% in Water 250 ML IVPB SCH (18:30)
[2019-10-12] MEDS: Atorvastatin Calcium 20 MG TAB PO SCH (20:55)
[2019-10-12] MEDS ORDERED: Amiodarone 150 MG, Admixture Fee 1 EACH in Dextrose 5% in Water 100 ML IVPB SCH (23:15)
[2019-10-12 23:38] LABS: ALT (SGPT) 26 U/L (8-55); AST (SGOT) 51 U/L (5-34); Albumin 3.1 g/dL (3.4-4.8); Alkaline Phosphatase 137 U/L (40-110); Bilirubin, Direct 0.3 mg/dL (0.1-0.3); Bilirubin, Total 0.6 mg/dL (0.2-1.2); Magnesium 2.5 mg/dL (1.6-2.6); Protein, Total 5.3 g/dL (5.8-8.1)
[2019-10-13] MEDS: traMADol HCl 50 MG TAB PO PRN ×4 (03:09→21:42)
[2019-10-13] MEDS: Furosemide 40 MG TAB PO SCH ×2 (09:19→13:37)
[2019-10-13] MEDS: Aspirin 325 mg Enteric Coated Tablet PO SCH (09:19)
[2019-10-13] MEDS: Potassium Chloride 10 MEQ TAB PO SCH ×2 (09:19→16:51)
[2019-10-13] MEDS: Amiodarone 450 MG, Admixture Fee 1 EACH in Dextrose 5% in Water 250 ML IVPB SCH (09:44)
[2019-10-13] MEDS: Acetaminophen 325 MG TAB PO PRN (13:37)
--- NOTE | 2019-10-13 15:21 | PDOC.CPN ---
- Subjective Date: 10/13/19 Time: 15:24 Interval history: The pt seen and examined. No overnight events. No cardiac complaints. - Objective Allergies/Adverse Reactions: Allergies Allergy/AdvReac Type Severity Reaction Status Date / Time gluten Allergy Verified 10/08/19 12:01 Visit Medications: Current Medications Acetaminophen (Tylenol) 650 mg PO Q6H PRN PRN Reason: Headache/Fever/Mild Pain (1-3) Last Admin: 10/13/19 13:37 Dose: 650 mg Al Hydroxide/Mg Hydroxide (Maalox) 30 ml PO Q4H PRN PRN Reason: Indigestion Albuterol/Ipratropium (Duoneb) 3 ml NEB Q6H PRN PRN Reason: SHORTNESS OF BREATH Artificial Tears (Tears Naturale) 0 drop EA EYE PRN PRN PRN Reason: Dry Eyes Aspirin (Ecotrin) 325 mg PO DAILY [facility] Last Admin: 10/13/19 09:19 Dose: 325 mg Atorvastatin Calcium (Lipitor) 20 mg PO HS [facility] Last Admin: 10/12/19 20:55 Dose: 20 mg Bisacodyl (Dulcolax) 10 mg PO Q12H PRN PRN Reason: Constipation Bisacodyl (Dulcolax) 10 mg [place] Q12H PRN PRN Reason: Constipation Diphenhydramine HCl (Benadryl) 25 mg PO Q6H PRN PRN Reason: Itching & Insomnia or Antoine Amarjit Furosemide (Lasix) 40 mg PO 0900,1400 [facility] Last Admin: 10/13/19 13:37 Dose: 40 mg Guaifenesin/Dextromethorphan (Robitussin Dm) 15 ml PO Q4H PRN PRN Reason: Cough Amiodarone HCl 450 mg/Miscellaneous Medication 1 each/ Dextrose/Water 259 mls @ 0 mls/hr IVPB INF [facility]; Protocol Last Admin: 10/13/19 09:44 Dose: 259 mls Mineral Oil (Fleet Mineral Oil) 133 ml [place] DAILYPRN PRN PRN Reason: Constipation Nitroglycerin (Nitrostat) 0.4 mg SL Q5MIN PRN PRN Reason: Chest Pain Ondansetron HCl (Zofran) 4 mg IVP Q6H PRN PRN Reason: Nausea/Vomiting Last Admin: 10/09/19 13:12 Dose: 4 mg Pantoprazole Sodium (Protonix) 40 mg PO DAILY [facility] Last Admin: 10/13/19 09:19 Dose: 40 mg Potassium Chloride (Kcl) 20 meq IVPB PRN PRN PRN Reason: K level </= 4.0 Last Admin: 10/09/19 14:04 Dose: 20 meq Potassium Chloride (Klor-Con 10) 10 meq PO BID-WM [facility] Last Admin: 10/13/19 09:19 Dose: 10 meq Sodium Chloride (Flush - Normal Saline) 10 ml IVF PRN PRN PRN Reason: Saline Flush Last Admin: 10/12/19 06:28 Dose: 10 ml Tramadol HCl (Ultram) 50 mg PO Q6H PRN PRN Reason: Pain Last Admin: 10/13/19 09:19 Dose: 50 mg Zolpidem Tartrate (Ambien) 5 mg PO HSPRN PRN PRN Reason: Insomnia Vital Signs & Weight: Vital Signs Temp Pulse Pulse Pulse Resp BP BP 10/13/19 14:46 77 68 144/62 H 135/53 L 10/13/19 11:07 97.9 F 67 20 10/13/19 10:56 80 66 124/55 L 10/13/19 07:45 97.6 F 109 H 18 BP BP Pulse Ox 10/13/19 14:46 10/13/19 11:07 124/55 L 92 L 10/13/19 10:56 10/13/19 07:45 123/49 L 95 Weight 183 lb 14.4 oz - Quality Measures CV meds: Beta Judah: No (start when taking po), NAKIA/ARB: No ("), Statin: No ( "), ASA: No (") - Physical Exam General: alert & oriented x3 HEENT: mucus membranes moist Neck: supple neck Cardiac: regular rate and rhythm, S1/S2 Lungs: clear to auscultation, decreased breath sounds Neuro: cranial nerve 2-12 intact Musculoskeletal: decreased range of motion - Labs Result Diagrams: 10/11/19 03:10 10/11/19 03:10 - Telemetry Sinus rhythms and dysrhythmias: sinus rhythm - Assessment/Plan Assessment/Plan: 1. 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 HTN - slightly hypotensive without any BP med. 3. Dyslipidemia - will change his statin from Zocor to Lipitor 20mg qd 2/2 s/p CABG 4. Carotid artery disease. Follow. 5. Post-op afib - converted back to SR around 0900 on 10/13/2019; on Amiodarone drip; MAR reviewed Pt. seen and eval. by me. I agree with the A/P by the LIQUID FLOOR AND WALL APPLIER. Chest clear. RRR. [email or web address]
[2019-10-13] MEDS: Carvedilol 3.125 MG TAB PO SCH (16:51)
[2019-10-13] MEDS: Atorvastatin Calcium 20 MG TAB PO SCH (21:41)
[2019-10-14] MEDS: Amiodarone 450 MG, Admixture Fee 1 EACH in Dextrose 5% in Water 250 ML IVPB SCH (00:22)
[2019-10-14] MEDS: traMADol HCl 50 MG TAB PO PRN ×3 (04:44→18:00)
[2019-10-14] MEDS: Potassium Chloride 10 MEQ TAB PO SCH ×2 (09:10→17:58)
[2019-10-14] MEDS: Furosemide 40 MG TAB PO SCH ×2 (09:10→14:59)
[2019-10-14] MEDS: Amiodarone 200 MG TAB PO SCH ×2 (09:10→21:11)
[2019-10-14] MEDS: Aspirin 325 mg Enteric Coated Tablet PO SCH (09:10)
[2019-10-14] MEDS: Carvedilol 3.125 MG TAB PO SCH ×2 (09:10→17:58)
--- NOTE | 2019-10-14 13:17 | EKG ---
Test Reason : POST CABG Blood Pressure : / mmHG Vent. Rate : 076 BPM Atrial Rate : 076 BPM P-R Int : 244 ms QRS Dur : 088 ms QT Int : 440 ms P-R-T Axes : 068 049 -73 degrees QTc Int : 495 ms Sinus rhythm with 1st degree A-V block Nonspecific T wave abnormality Prolonged QT Abnormal ECG No previous ECGs available Confirmed by GUALBERTO GALEANO (2) on 10/14/2019 1:17:20 PM Referred By: Lakeisha GARCIA Confirmed By:GUALBERTO GALEANO
[2019-10-14] MEDS: Acetaminophen 325 MG TAB PO PRN (14:59)
--- NOTE | 2019-10-14 17:14 | PDOC.CPN ---
- Subjective Date: 10/14/19 Time: 17:16 Interval history: The pt seen and examined. No overnight events. No Cardiac complaints. - Objective Allergies/Adverse Reactions: Allergies Allergy/AdvReac Type Severity Reaction Status Date / Time gluten Allergy Verified 10/08/19 12:01 Visit Medications: Current Medications Acetaminophen (Tylenol) 650 mg PO Q6H PRN PRN Reason: Headache/Fever/Mild Pain (1-3) Last Admin: 10/14/19 14:59 Dose: 650 mg Al Hydroxide/Mg Hydroxide (Maalox) 30 ml PO Q4H PRN PRN Reason: Indigestion Albuterol/Ipratropium (Duoneb) 3 ml NEB Q6H PRN PRN Reason: SHORTNESS OF BREATH Amiodarone HCl (Cordarone) 400 mg PO BID [facility] Last Admin: 10/14/19 09:10 Dose: 400 mg Artificial Tears (Tears Naturale) 0 drop EA EYE PRN PRN PRN Reason: Dry Eyes Aspirin (Ecotrin) 325 mg PO DAILY [facility] Last Admin: 10/14/19 09:10 Dose: 325 mg Atorvastatin Calcium (Lipitor) 20 mg PO HS [facility] Last Admin: 10/13/19 21:41 Dose: 20 mg Bisacodyl (Dulcolax) 10 mg PO Q12H PRN PRN Reason: Constipation Bisacodyl (Dulcolax) 10 mg [place] Q12H PRN PRN Reason: Constipation Carvedilol (Coreg) 3.125 mg PO BID-WM [facility] Last Admin: 10/14/19 09:10 Dose: 3.125 mg Diphenhydramine HCl (Benadryl) 25 mg PO Q6H PRN PRN Reason: Itching & Insomnia or Antoine Amarjit Furosemide (Lasix) 40 mg PO 0900,1400 [facility] Last Admin: 10/14/19 14:59 Dose: 40 mg Guaifenesin/Dextromethorphan (Robitussin Dm) 15 ml PO Q4H PRN PRN Reason: Cough Mineral Oil (Fleet Mineral Oil) 133 ml [place] DAILYPRN PRN PRN Reason: Constipation Nitroglycerin (Nitrostat) 0.4 mg SL Q5MIN PRN PRN Reason: Chest Pain Pantoprazole Sodium (Protonix) 40 mg PO DAILY [facility] Last Admin: 10/14/19 09:10 Dose: 40 mg Potassium Chloride (Kcl) 20 meq IVPB PRN PRN PRN Reason: K level </= 4.0 Last Admin: 10/09/19 14:04 Dose: 20 meq Potassium Chloride (Klor-Con 10) 10 meq PO BID-WM [facility] Last Admin: 10/14/19 09:10 Dose: 10 meq Sodium Chloride (Flush - Normal Saline) 10 ml IVF PRN PRN PRN Reason: Saline Flush Last Admin: 10/12/19 06:28 Dose: 10 ml Tramadol HCl (Ultram) 50 mg PO Q6H PRN PRN Reason: Pain Last Admin: 10/14/19 12:00 Dose: 50 mg Zolpidem Tartrate (Ambien) 5 mg PO HSPRN PRN PRN Reason: Insomnia Vital Signs & Weight: Vital Signs Temp Pulse Pulse Resp BP BP Pulse Ox 10/14/19 15:55 98.5 F 68 10 L 152/66 H 89 L 10/14/19 11:45 97.6 F 65 24 H 156/71 H 93 L 10/14/19 09:20 62 122/54 L 10/14/19 07:00 98.1 F 62 16 132/58 L 92 L 10/14/19 05:31 92 L Weight 189 lb - Quality Measures CV meds: Beta Judah: No (start when taking po), NAKIA/ARB: No ("), Statin: No ( "), ASA: No (") - Physical Exam General: alert & oriented x3 HEENT: mucus membranes moist Neck: supple neck Cardiac: regular rate and rhythm, S1/S2 Lungs: clear to auscultation, decreased breath sounds Neuro: cranial nerve 2-12 intact Abdomen: unremarkable Extremities: no cyanosis Musculoskeletal: decreased range of motion - Labs Result Diagrams: 10/11/19 03:10 10/11/19 03:10 - Telemetry Sinus rhythms and dysrhythmias: sinus rhythm - Assessment/Plan Assessment/Plan: 1. 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 HTN - stable; 3. Dyslipidemia - will change his statin from Zocor to Lipitor 20mg qd 2/2 s/p CABG 4. Carotid artery disease. Follow. 5. Post-op afib - converted back to SR around 0900 on 10/13/2019; on Amiodarone 400mg BID since 10/14/2019; will titrate q 2wk down to 200mg qd. On ASA 325mg qd and coreg MAR reviewed
[2019-10-14] MEDS: Atorvastatin Calcium 20 MG TAB PO SCH (21:11)
[2019-10-15] MEDS: traMADol HCl 50 MG TAB PO PRN ×3 (00:29→20:08)
[2019-10-15] MEDS: Furosemide 40 MG TAB PO SCH ×2 (08:55→15:04)
[2019-10-15] MEDS: Potassium Chloride 10 MEQ TAB PO SCH ×2 (08:55→16:30)
[2019-10-15] MEDS: Amiodarone 200 MG TAB PO SCH ×2 (08:55→20:08)
[2019-10-15] MEDS: Aspirin 325 mg Enteric Coated Tablet PO SCH (08:55)
[2019-10-15] MEDS ORDERED: Metolazone 5 MG TAB PO SCH (09:00)
[2019-10-15] MEDS: Carvedilol 3.125 MG TAB PO SCH (09:28)
--- NOTE | 2019-10-15 11:12 | PDOC.CPN ---
- Subjective Date: 10/15/19 Time: 11:14 Interval history: The pt seen and examined. No overnight events. No cardiac complaints. - Objective Allergies/Adverse Reactions: Allergies Allergy/AdvReac Type Severity Reaction Status Date / Time gluten Allergy Verified 10/08/19 12:01 Visit Medications: Current Medications Acetaminophen (Tylenol) 650 mg PO Q6H PRN PRN Reason: Headache/Fever/Mild Pain (1-3) Last Admin: 10/14/19 14:59 Dose: 650 mg Al Hydroxide/Mg Hydroxide (Maalox) 30 ml PO Q4H PRN PRN Reason: Indigestion Albuterol/Ipratropium (Duoneb) 3 ml NEB Q6H PRN PRN Reason: SHORTNESS OF BREATH Amiodarone HCl (Cordarone) 400 mg PO BID [facility] Last Admin: 10/15/19 08:55 Dose: 400 mg Artificial Tears (Tears Naturale) 0 drop EA EYE PRN PRN PRN Reason: Dry Eyes Aspirin (Ecotrin) 325 mg PO DAILY [facility] Last Admin: 10/15/19 08:55 Dose: 325 mg Atorvastatin Calcium (Lipitor) 20 mg PO HS [facility] Last Admin: 10/14/19 21:11 Dose: 20 mg Bisacodyl (Dulcolax) 10 mg PO Q12H PRN PRN Reason: Constipation Bisacodyl (Dulcolax) 10 mg [place] Q12H PRN PRN Reason: Constipation Diphenhydramine HCl (Benadryl) 25 mg PO Q6H PRN PRN Reason: Itching & Insomnia or Antoine Amarjit Furosemide (Lasix) 40 mg PO 0900,1400 [facility] Last Admin: 10/15/19 08:55 Dose: 40 mg Guaifenesin/Dextromethorphan (Robitussin Dm) 15 ml PO Q4H PRN PRN Reason: Cough Mineral Oil (Fleet Mineral Oil) 133 ml [place] DAILYPRN PRN PRN Reason: Constipation Nitroglycerin (Nitrostat) 0.4 mg SL Q5MIN PRN PRN Reason: Chest Pain Pantoprazole Sodium (Protonix) 40 mg PO DAILY [facility] Last Admin: 10/15/19 08:55 Dose: 40 mg Potassium Chloride (Kcl) 20 meq IVPB PRN PRN PRN Reason: K level </= 4.0 Last Admin: 10/09/19 14:04 Dose: 20 meq Potassium Chloride (Klor-Con 10) 10 meq PO BID-WM [facility] Last Admin: 10/15/19 08:55 Dose: 10 meq Sodium Chloride (Flush - Normal Saline) 10 ml IVF PRN PRN PRN Reason: Saline Flush Last Admin: 10/12/19 06:28 Dose: 10 ml Tramadol HCl (Ultram) 50 mg PO Q6H PRN PRN Reason: Pain Last Admin: 10/15/19 06:28 Dose: 50 mg Zolpidem Tartrate (Ambien) 5 mg PO HSPRN PRN PRN Reason: Insomnia Vital Signs & Weight: Vital Signs Temp Pulse Pulse Pulse Resp BP BP 10/15/19 08:53 62 61 111/48 L 154/55 H 10/15/19 08:09 97.7 F 60 18 10/15/19 07:29 10/15/19 05:48 10/15/19 03:18 97.4 F L 58 L 18 BP BP Pulse Ox 10/15/19 08:53 10/15/19 08:09 108/45 L 94 L 10/15/19 07:29 93 L 10/15/19 05:48 93 L 10/15/19 03:18 127/60 93 L Weight 187 lb 11.2 oz - Quality Measures CV meds: Beta Judah: No (start when taking po), NAKIA/ARB: No ("), Statin: No ( "), ASA: No (") - Physical Exam General: alert & oriented x3 Neck: supple neck Cardiac: regular rate and rhythm, S1/S2 Lungs: clear to auscultation, decreased breath sounds Neuro: cranial nerve 2-12 intact Musculoskeletal: decreased range of motion - Labs Result Diagrams: 10/11/19 03:10 10/11/19 03:10 - Telemetry Sinus rhythms and dysrhythmias: sinus rhythm - Assessment/Plan Assessment/Plan: 1. 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 HTN - Coreg was stopped for hypotension 3. Dyslipidemia - will change his statin from Zocor to Lipitor 20mg qd 2/2 s/p CABG 4. Carotid artery disease. Follow. 5. Post-op afib - converted back to SR around 0900 on 10/13/2019; on Amiodarone 400mg BID since 10/14/2019; will titrate q 2wk down to 200mg qd. On ASA 325mg qd and coreg MAR reviewed Pt. seen and eval. by me. I agree with the A/P by the DISTRIBUTION TRANSFORMER ASSEMBLER. Chest clear. RRR. [email or web address]
[2019-10-15] MEDS: Atorvastatin Calcium 20 MG TAB PO SCH (20:08)
[2019-10-16] MEDS: traMADol HCl 50 MG TAB PO PRN ×2 (04:55→13:45)
[2019-10-16] MEDS: Amiodarone 200 MG TAB PO SCH (08:27)
[2019-10-16] MEDS: Potassium Chloride 10 MEQ TAB PO SCH (08:27)
[2019-10-16] MEDS: Aspirin 325 mg Enteric Coated Tablet PO SCH (08:27)
[2019-10-16] MEDS: Furosemide 40 MG TAB PO SCH ×2 (08:27→13:45)
[2019-10-16 12:05] VITALS: TEMP 98
--- NOTE | 2019-10-16 13:14 | PDOC.CPN ---
- Subjective Date: 10/16/19 Time: 13:15 Interval history: The pt seen and examined. No overnight events. No cardiac complaints. - Objective Allergies/Adverse Reactions: Allergies Allergy/AdvReac Type Severity Reaction Status Date / Time gluten Allergy Verified 10/08/19 12:01 Visit Medications: Current Medications Acetaminophen (Tylenol) 650 mg PO Q6H PRN PRN Reason: Headache/Fever/Mild Pain (1-3) Last Admin: 10/14/19 14:59 Dose: 650 mg Al Hydroxide/Mg Hydroxide (Maalox) 30 ml PO Q4H PRN PRN Reason: Indigestion Albuterol/Ipratropium (Duoneb) 3 ml NEB Q6H PRN PRN Reason: SHORTNESS OF BREATH Amiodarone HCl (Cordarone) 400 mg PO BID [facility] Last Admin: 10/16/19 08:27 Dose: 400 mg Artificial Tears (Tears Naturale) 0 drop EA EYE PRN PRN PRN Reason: Dry Eyes Aspirin (Ecotrin) 325 mg PO DAILY [facility] Last Admin: 10/16/19 08:27 Dose: 325 mg Atorvastatin Calcium (Lipitor) 20 mg PO HS [facility] Last Admin: 10/15/19 20:08 Dose: 20 mg Bisacodyl (Dulcolax) 10 mg PO Q12H PRN PRN Reason: Constipation Last Admin: 10/15/19 17:46 Dose: 10 mg Bisacodyl (Dulcolax) 10 mg [place] Q12H PRN PRN Reason: Constipation Diphenhydramine HCl (Benadryl) 25 mg PO Q6H PRN PRN Reason: Itching & Insomnia or Antoine Amarjit Furosemide (Lasix) 40 mg PO 0900,1400 [facility] Last Admin: 10/16/19 08:27 Dose: 40 mg Guaifenesin/Dextromethorphan (Robitussin Dm) 15 ml PO Q4H PRN PRN Reason: Cough Mineral Oil (Fleet Mineral Oil) 133 ml [place] DAILYPRN PRN PRN Reason: Constipation Nitroglycerin (Nitrostat) 0.4 mg SL Q5MIN PRN PRN Reason: Chest Pain Pantoprazole Sodium (Protonix) 40 mg PO DAILY [facility] Last Admin: 10/16/19 08:27 Dose: 40 mg Potassium Chloride (Kcl) 20 meq IVPB PRN PRN PRN Reason: K level </= 4.0 Last Admin: 10/09/19 14:04 Dose: 20 meq Potassium Chloride (Klor-Con 10) 10 meq PO BID-WM [facility] Last Admin: 10/16/19 08:27 Dose: 10 meq Sodium Chloride (Flush - Normal Saline) 10 ml IVF PRN PRN PRN Reason: Saline Flush Last Admin: 10/16/19 08:29 Dose: 10 ml Tramadol HCl (Ultram) 50 mg PO Q6H PRN PRN Reason: Pain Last Admin: 10/16/19 04:55 Dose: 50 mg Zolpidem Tartrate (Ambien) 5 mg PO HSPRN PRN PRN Reason: Insomnia Vital Signs & Weight: Vital Signs Temp Pulse Resp BP BP Pulse Ox 10/16/19 12:00 98.0 F 69 16 103/43 L 93 L 10/16/19 07:23 97.8 F 66 18 111/46 L 95 10/16/19 04:00 98.6 F 67 18 135/55 L 92 L Weight 187 lb 11.2 oz - Quality Measures CV meds: Beta Judah: No (start when taking po), NAKIA/ARB: No ("), Statin: No ( "), ASA: No (") - Physical Exam General: alert & oriented x3 HEENT: mucus membranes moist Neck: supple neck Cardiac: regular rate and rhythm, S1/S2 Lungs: clear to auscultation, decreased breath sounds Neuro: cranial nerve 2-12 intact Abdomen: unremarkable Extremities: no cyanosis Skin: clear Musculoskeletal: decreased range of motion - Labs Result Diagrams: 10/11/19 03:10 10/11/19 03:10 - Telemetry Sinus rhythms and dysrhythmias: sinus rhythm - Assessment/Plan Assessment/Plan: 1. 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 HTN - Coreg was stopped for hypotension 3. Dyslipidemia - will change his statin from Zocor to Lipitor 20mg qd 2/2 s/p CABG 4. Carotid artery disease. Follow. 5. Post-op afib - intermittent AFib over last night; remains in SR this AM; on Amiodarone 400mg BID since 10/14/2019; will titrate q 2wk down to 200mg qd. On ASA 325mg qd MAR reviewed pt. seen and eval. by me. I agree with the A/P by the DEPUTY EDITOR IN CHIEF. He continues to improve. No cardiac complaints. No further Afib. since last night. Chest clear. RRR at this time. No edema. He will go to rehab in [place]. jil
[2019-10-16 15:44] VITALS: BP 119/59
--- NOTE | 2019-10-16 19:26 | DIS ---
DATE OF ADMISSION: 10/09/2019 DATE OF DISCHARGE: 10/16/2019 Being transferred to the Inpatient Rehab. PROCEDURES: 1. Aortic valve replacement with a #23 Inspiris bioprosthetic valve. 2. Coronary artery bypass grafting x2-left internal mammary artery to left anterior descending, right radial artery to obtuse marginal. DESCRIPTION OF HOSPITAL STAY: Mr. Carroll was admitted for elective AVR CABG. He has done fairly well postoperatively. He has had a couple bouts of atrial fibrillation, which has been controlled with amiodarone. At the time of transfer to rehab, he is ambulatory with assistance. He has had some swelling in his right arm, post radial artery harvest. The skin was closed with ramya due to his thin skin and ramya will need to be removed in 2 weeks. He is being transferred to for further rehab prior to going home. DISCHARGE MEDICATIONS: Include. 1. Aspirin 325 mg daily. 2. Lasix 40 mg b.i.d. for 15 days. 3. Amiodarone 400 mg b.i.d. for 14 days, 400 mg daily for 14 further days and then stop. 4. Omeprazole 40 mg daily. 5. Zocor 20 mg at bedtime. 6. Ultram 50 mg q.6 hours p.r.n. pain. FOLLOWUP: Follow up is with me in 2 weeks, Dr. Conte in a month. Job ID: [id number]
--- NOTE | 2019-10-17 05:40 | PQF ---
[employer] Loan Analyst Crystal Reports Winform ViewerYSABELCINTHYA Mccormick CHARLES H MD [id number] [facility] [id number] CLINICAL DOCUMENTATION CLARIFICATION FORM: POST DISCHARGE Addendum to original discharge summary date: ____ Late entry note date: __ DATE: 10/17/2019 ATTN: MELISSA GARCIA MD Please exercise your independent, professional judgment in responding to the clarification form. Clinical indicators are provided on the bottom of this form for your review Please check appropriate box(s): [ x ] Post op Afib is a complication of current/recent surgery [ ] Post op Afib is a not complication of current/recent surgery [ ] Other diagnosis [ ] Unable to determine In addition, please specify: Present on Admission (POA): [ ] Yes [ x] No [ ] Unable to determine CLINICAL INDICATORS - SIGNS / SYMPTOMS / LABS Post op AFIB - Documented in Cardiology PNs on 10/13 by Leighann Lowe Converted back to SR [id number] on 10/13 - Documented in Cardiology PNs on by Leighann Lowe Status post Bioprosthetic AVR+ CABG on 10/09 - Documented in Cardiology PNs on 10/13 by Leighann Lowe RISK FACTORS HTN CAD TREATMENT: Amiodarone Drip - Documented in Cardiology PNs on 10/13 by Leighann Lowe MAR reviewed Amiodarone 400 mg BID since 10/14 will titrate q 2wk down to 200mg q d - Documented in Cardiology PNs on 10/14 by Leighann Lowe On ASA 325mg qd coreg (This form is maintained as a part of the permanent medical record) 2014 [employer]. All Rights Reserved Dimitris [email or web address] [not provided] [email or web address]
== END 2019-10-16 16:21 | DRG 220 ==
LOC: SURG A 06:01 → CCU 11:47 → 2NO 10-11 13:58
PROVIDERS: ADMIT Thoracic Surgery (Cardiothoracic Vascular Surgery); ATTEND Thoracic Surgery (Cardiothoracic Vascular Surgery)
PROC: 02RF08Z Replacement of Aortic Valve with Zooplastic Tissue, Open Approach (ICD-10-PCS; principal; 2019-10-09)
PROC: 02100Z9 Bypass Coronary Artery, One Artery from Left Internal Mammary, Open Approach (ICD-10-PCS; 2019-10-09)
PROC: 02100AW Bypass Coronary Artery, One Artery from Aorta with Autologous Arterial Tissue, Open Approach (ICD-10-PCS; 2019-10-09)
PROC: 03BB4ZZ Excision of Right Radial Artery, Percutaneous Endoscopic Approach (ICD-10-PCS; 2019-10-09)
PROC: 5A1221Z Performance of Cardiac Output, Continuous (ICD-10-PCS; 2019-10-09)
DX: I35.0 Nonrheumatic aortic (valve) stenosis (principal); I97.190 Other postprocedural cardiac functional disturbances following cardiac surgery; I25.10 Atherosclerotic heart disease of native coronary artery without angina pectoris; Z79.899 Other long term (current) drug therapy; I10 Essential (primary) hypertension; E78.5 Hyperlipidemia, unspecified; Z88.8 Allergy status to other drugs, medicaments and biological substances; M19.91 Primary osteoarthritis, unspecified site; Z96.651 Presence of right artificial knee joint; Z98.49 Cataract extraction status, unspecified eye
CPT/HCPCS: 36415; 36416; 36430; 71045; 80048; 80076; 82805; 83735; 84443; 85025; 85610; 85730; 86850; 86900; 86901; 93005; 93010; 93798; 94002; J0171; J0282; J0690; J1100; J1642; J1644; J1815; J1885; J1940; J2001; J2250; J2270; J2405; J2440; J2704; J3010; J3370; J3475; J3480; J3490; J7070; P9045; S0017; S0028

== ENCOUNTER 2025-08-21 10:26 | Outpatient (CLI) | payer MEDICARE | END 2025-08-21 10:27 | disposition home or self-care (01) | LOC: SCSBT 10:26 | PROVIDERS: ATTEND Internal Medicine Rheumatology | DX: M81.0 Age-related osteoporosis without current pathological fracture (principal); M85.852 Other specified disorders of bone density and structure, left thigh | CPT/HCPCS: 77080 ==